=== PATIENT | female | born 1945 | race Caucasian/White ===

== ENCOUNTER → 2024-03-09 08:51 | Outpatient (REF) | payer MEDICARE, BC, SELFPAY | LOC: RAD 08:51 | PROVIDERS: ATTENDING PHYSICIAN Family Medicine | DX: R41.3 Other amnesia (principal); Z78.0 Asymptomatic menopausal state | CPT/HCPCS: 70450; 77080 ==

== ENCOUNTER → 2024-07-10 17:14 | Outpatient (REF) | payer MEDICARE, BC, SELFPAY | LOC: RAD 17:14 | PROVIDERS: ATTENDING PHYSICIAN Internal Medicine Nephrology; FAMILY PHYSICIAN Family Medicine | DX: R80.1 Persistent proteinuria, unspecified (principal) | CPT/HCPCS: 76775 ==

== ENCOUNTER 2024-08-20 15:17 | Emergency (ER) | payer MEDICARE, SELFPAY ==
[2024-08-20 15:22] VITALS: BP 139/64
[2024-08-20 16:04] LABS: Urine Albumin 2+ (Neg - Trace); Urine Bilirubin 3+ (Negative); Urine Character Slightly Cloudy (Clear); Urine Glucose Negative (Negative); Urine Ketone Negative (Negative); Urine Leukocyte 1+ (Negative); Urine Nitrite Positive (Negative); Urine Occult Blood 4+ (Negative); Urine Urobilinogen 3+ (Neg - 1+)
[2024-08-20 16:14] LABS: % Basophils 0.8 % (0-2); % Eosinophils 0.8 % (0-6); % Immature Granulocytes 0.2 % (0-0.5); % Lymphocytes 24.1 % (20.5-51.1); % Monocytes 7.7 % (1.7-9.3); % Neutrophils 66.4 % (42.2-75.2); Absolute Lymphocytes 1.3 10^3/uL (1.2-3.4); Absolute Monocytes 0.4 10^3/uL (0.1-0.6); Absolute Neutrophils 3.5 10^3/uL (1.4-6.5); Hematocrit 44.1 % (37.0-47.0); Hemoglobin 13.8 g/dL (12.0-16.0); Mean Corp Hgb Conc. 31.3 g/dL (33.0-37.0); Mean Corpuscular Hgb 28.3 pg (27.0-31.0); Mean Corpuscular Volume 90.4 fL (81.0-99.0); Mean Platelet Volume 9.7 fL (7.4-10.4); Nucleated Red Blood Cells % 0 %; Platelet Count 175 10^3/uL (130-400); Red Blood Cell Count 4.88 10^6/uL (4.20-5.40); Red Cell Dist. Width 14.4 % (11.5-14.5); White Blood Cell Count 5.3 10^3/uL (4.8-10.8)
[2024-08-20 16:15] LABS: ALT (SGPT) 58 U/L (0-35); AST (SGOT) 52 U/L (14-36); Albumin 4.6 g/dl (3.5-5.0); Alkaline Phosphatase 93 U/L (38-126); Blood Urea Nitrogen 14 mg/dl (7-17); Calcium 9.9 mg/dl (8.4-10.2); Carbon Dioxide 30 mmol/L (22-30); Chloride 107 mmol/L (98-107); Glucose 114 mg/dl (70-99); Potassium 4.6 mmol/L (3.5-5.1); Sodium 143 mmol/L (135-145); Total Bilirubin 1.2 mg/dl (0.2-1.3); Total Protein 7.2 g/dl (6.3-8.2); eGFR > 60.00
[2024-08-20 16:17] LABS: Lipase 127 U/L (23-300)
[2024-08-20 16:18] LABS: Urine Color Orange
[2024-08-20 17:11] LABS: Urine Squamous Cell 0-2 /LPF (Few)
[2024-08-20 19:49] VITALS: BP 132/58
[2024-08-20 19:55] VITALS: BMI 28.5
[2024-08-20 20:00] VITALS: BP 117/58
[2024-08-20 21:04] VITALS: BP 121/57
[2024-08-20] MEDS: CITROMA 300 ML PO (21:57)
[2024-08-20] MEDS: KEFLEX 500 MG PO (21:57)
--- NOTE | 2024-08-21 22:35 | ED.GENMED ---
History of Present Illness
General
Chief Complaint: Abdominal Pain
Source: patient
Exam Limitations: none
Time Seen by Provider: 08/20/24 19:26
Nursing documentation reviewed up to this point in time: agreed with
History of Present Illness
History of Present Illness:
Patient to ED with complaint of lower abdominal pain and constipation x 1 week. taking laxatives without improvement. Denies n/v/d. No fever/chlls. Brought t oED by spouse for eval
Past History
Past History
ED Past Medical History: HTN, Hypercholesterolemia, NIDDM, Psychiatric (Anxiety) and Other (Chronic pain syndrome)
ED Past Surgical History: Gynecological (Hysterectomy)
Social History
Tobacco: Non-smoker
Alcohol: None
Personal:
Living: with family
Employment: Retired
Review of Systems
Review of Systems
Allergies reviewed?: Yes
All Other Systems: ROS reviewed and negative except as documented in HPI and ROS
Constitutional: Reports no symptoms
EENT: Reports no symptoms
Respiratory: Reports no symptoms
Cardiac: Reports no symptoms
ABD/GI: Reports abdominal pain and constipated
: Reports dark urine
Musculoskeletal: Reports no symptoms
Skin: Reports no symptoms
Neurological: Reports no symptoms
Psychiatric: Reports no symptoms
Phy Exam
General Physical Exam
General Presentation: mild distress
General age: appears stated age
General Skin: warm and dry
General Habitus: normal
Cardiovascular Exam
Cardiovascular Exam: regular rate/rhythm and no edema
Pulmonary Exam
Pulmonary Exam: lungs clear and no respiratory distress
Gastrointestinal Exam
Gastrointestinal Exam: normal bowel sounds, soft, no organomegaly, no pulsatile mass and non distended
Palpation: left lower quadrant: Mild tenderness and right lower quadrant: Mild tenderness
Musculoskeletal Exam
Musculoskeletal Exam: full ROM and neuro vasc intact
Skin Exam
Skin Exam: normal color, warm/dry and no rash
Psychiatric Exam
Psychiatric Exam: normal mood/affect
Course
Orders/Labs/Results
Orders:
Orders
08/20/24 15:27
Electrocardiogram (*1) Urgent
Reason for Study: Abdominal Pain
EKG- Treatment ONCE
08/20/24 15:46
Complete Blood Count/With Diff Urgent
Comprehensive Metabolic Panel Urgent
Lipase Urgent
Urinalysis Reflex To Culture Urgent
Date Specimen was Collected: 08/20/24
Time Specimen was Collected: 15:27
Urine Microscopic Reflex Cult Urgent
Urine Culture Urgent
MUKESH Source: U
Specimen Description:
Date Specimen was Collected: 08/20/24
Time Specimen was Collected: 15:27
08/20/24 19:40
Abdomen Xray - 1 View [CR Abdomen - 1 View] Urgent
Comment:
Reason For Exam: constipation
08/20/24 20:15
Bladder Scan- Treatment ONCE
08/20/24 21:33
Cephalexin Monohydrate [Keflex] 500 mg PO NOW STA
Magnesium Citrate [Citroma] 300 ml PO ONCE ONE
Abnormal Lab Results
08/20/24
15:46
MCHC 31.3 L g/dL
(33.0-37.0)
Glucose 114 H mg/dl
(70-99)
AST 52 H U/L
(14-36)
ALT 58 H U/L
(0-35)
Ur Occult Blood Reflex 4+ A
(Negative)
Urine Nitrite (Reflex) Positive A
(Negative)
Urine Bilirubin 3+ A
(Negative)
Urine Urobilinogen 3+ A
(Neg - 1+)
Leukocyte Esterase Rfl 1+ A
(Negative)
Urine RBC 7-10 A /HPF
(0-2)
Urine WBC (Reflex) 11-15 A /HPF
(0-5)
Urine Albumin (Reflex) 2+ A
(Neg - Trace)
08/20/24 15:46
08/20/24 15:46
Vital Signs
Initial and Last Documented VS:
Initial Vital Signs
Temp Pulse Resp BP Pulse Ox
98.3 F 66 18 139/64 99
08/20/24 15:22 08/20/24 15:22 08/20/24 15:22 08/20/24 15:22 08/20/24 15:22
Last Documented Vital Signs
Temp Pulse Resp BP Pulse Ox
98.3 F 71 16 121/57 90
08/20/24 15:22 08/20/24 19:55 08/20/24 19:55 08/20/24 21:04 08/20/24 21:15
*Radiology
Radiology exam reviewed: radiology read reviewed
*Pulse Oximetry
Patient hypoxic: no
*Critical Care Note
Total Time (30-74mins, 75-104mins- exclusive of procedures): Not Applicable
Update Note
Update Note:
Patient to ED with complaint of lower abd. pain and constipation. Xray confirmes constipation. No obstruction. Able to digitally evacuate a large amt of soft brown stool. Will continue miralax, encourage fluids. She was given instructions on
s/s to return to ED and she is agreeable to plan.
ED Attending Note
-
Portions of this chart may have been created with voice recognition software.� Occasional wrong word or��sound alike� substitutions may have occurred due to the inherent limitations of voice recognition software.
Discharge Plan
Departure
Patient Disposition: Home (Routine Discharge)
Date of Disposition: 08/20/24
Time of Disposition: 21:35
Patient with high blood pressure during this ER visit?: No
Condition: Good
Covid-19: Not Applicable
Discharge Problem:
UTI (urinary tract infection), Constipation
Instructions: Urinary tract infections in adults, Constipation, Adult (DC)
Prescriptions:
New
cephalexin 500 mg capsule
500 mg PO BID 7 Days Qty: 14 0RF
No Action
cyclobenzaprine 10 MG tablet
10 mg PO HSPRN PRN (Reason: muscle spasm) Qty: 15 0RF
diclofenac sodium 75 MG tablet,delayed release (DR/EC)
75 mg PO BID PRN (Reason: pain, take with food) Qty: 30 0RF
Referrals:
Mary Ellen Ahumada DO [Family Provider] - Follow up in 2-3 days
Activity Restrictions/Additional Instructions:
Return to the emergency department immdiately for any changes in/worsening of your symptoms
Interventions
Interventions:
*Risk Screen - Suicide Last Done: 08/20/24 15:22
*General Assessment Last Done: 08/20/24 22:09
*Neglect/Abuse Screening Last Done: 08/20/24 15:22
*ED- Fall Risk Assessment Last Done: 08/20/24 15:22
*ED COVID-19 Vaccine History Last Done: 08/20/24 22:09
*Nursing Disposition Last Done: 08/20/24 22:09
YM-Bajpvj-Tnzxppqtee Assessment Last Done: 08/20/24 22:08
Discharge Date and Time
Discharge Date/Time: 08/20/24 22:09
Print Language: IRAQI
== END 2024-08-20 22:09 | disposition home or self-care (01) ==
LOC: EMR 15:17
PROVIDERS: Student in an Organized Health Care Education/Training Program; EMERGENCY PHYSICIAN Student in an Organized Health Care Education/Training Program; FAMILY PHYSICIAN Family Medicine
DX: N39.0 Urinary tract infection, site not specified (principal); K59.00 Constipation, unspecified; I10 Essential (primary) hypertension; E78.00 Pure hypercholesterolemia, unspecified; E11.9 Type 2 diabetes mellitus without complications; F41.9 Anxiety disorder, unspecified; G89.4 Chronic pain syndrome; Z90.710 Acquired absence of both cervix and uterus
CPT/HCPCS: 99283; 74018; 80053; 81003; 81015; 83690; 85025; 87086; 93005

== ENCOUNTER → 2024-08-26 15:05 | Outpatient (REF) | payer MEDICARE, BC, SELFPAY | LOC: RAD 15:05 | PROVIDERS: ATTENDING PHYSICIAN Family Medicine | DX: R31.9 Hematuria, unspecified (principal) | CPT/HCPCS: 76770 ==